=== PATIENT | male | born 1985 | race Caucasian/White ===

== ENCOUNTER 2016-12-14 13:45 | Emergency (ER) | payer OTHER ==
[2016-12-14 14:50] LABS: BASOPHIL 0.6 % (0-2); EOSINOPHIL 1.5 % (0-5); HCT 44.6 % (42.0-52.0); HGB 15.3 g/dl (13.2-18.0); LYMPHOCYTE 35.4 % (15-48); MCH 30.4 pg (25.0-31.0); MCHC 34.3 g/dL (32.0-36.0); MCV 88.7 fL (78.0-100.0); MPV 10.1 fL (6.0-9.5); NEUTROPHIL 52.5 % (41-80); PLT 248 K/uL (150-400); RBC 5.03 M/uL (4.70-6.00); RDW 13.3 % (11.5-14.0); WBC 6.5 K/uL (4.0-10.5)
[2016-12-14 15:00] LABS: INR 0.99 (0.9-1.2); PROTHROMBIN TIME 12.7 SECONDS (11.7-14.0); PTT 26.2 SECONDS (23.2-31.4)
[2016-12-14 15:06] LABS: ALBUMIN 4.4 g/dL (3.5-5.0); BILIRUBIN - TOTAL 0.3 mg/dL (0.1-1.0); CREATININE 0.9 mg/dL (0.7-1.2); GLOBULIN (CALCULATION) 2.6 g/dL (2.2-4.2); POTASSIUM 4.6 mmol/L (3.5-5.1)
== END 2016-12-14 16:50 | disposition home or self-care (01) ==
LOC: FER 13:45
PROVIDERS: Emergency Medicine
DX: I26.99 Other pulmonary embolism without acute cor pulmonale (principal); Z86.718 Personal history of other venous thrombosis and embolism; Z79.82 Long term (current) use of aspirin; Z79.01 Long term (current) use of anticoagulants
CPT/HCPCS: 36415; 71275; 80053; 84484; 85025; 85610; 85730; 93005; 93970; Q9967

== ENCOUNTER 2021-01-27 15:26 | Inpatient (IN) | payer OTHER ==
[~2021-01-27 15:26] MED LIST: BENTYL10 MG PO; CARAFATE1 GM PO; PHENERGAN25 M1 PO; PROTONIX40 MG PO; ZOFRAN8 MG PO
[2021-01-27 18:11] LABS: BASOPHIL 1.5 % (0-2); EOSINOPHIL 0.5 % (0-5); HCT 47.9 % (42.0-52.0); HGB 15.6 g/dl (13.2-18.0); MCH 29.3 pg (25.0-31.0); MCHC 32.6 g/dL (32.0-36.0); MPV 9.6 fL (6.0-9.5); NRBC 0; PLT 242 K/uL (150-400); RBC 5.32 M/uL (4.70-6.00); RDW 13.4 % (11.5-14.0)
[2021-01-27 18:13] LABS: MONOCYTE 24.5 % (0-12)
[2021-01-27 18:26] LABS: INR 1.06 (0.9-1.2); PROTHROMBIN TIME 13.1 SECONDS (11.4-13.6)
[2021-01-27 18:34] LABS: ALBUMIN 3.6 g/dL (3.4-5.0); BILIRUBIN - TOTAL 0.3 mg/dL (0.2-1.0); BUN/CREAT RATIO (CALC) 17.9 RATIO; CREATININE 1.12 mg/dL (0.67-1.17); GLOBULIN (CALCULATION) 3.7 g/dL; POTASSIUM 4.2 mmol/L (3.5-5.1); TOTAL PROTEIN 7.3 g/dL (6.4-8.2)
[2021-01-27 18:41] LABS: PRO-BNP 61 pg/mL (<125)
[2021-01-27 18:44] LABS: TOTAL CELL COUNT 100
[2021-01-27 18:47] LABS: BAND 3 % (0-10); LYMPHOCYTE(M) 15 % (15-48); MONOCYTE(M) 20 % (0-12); NEUTROPHILS(M) 56 % (41-80); VARIANT LYMPHOCYTE 6
[2021-01-27 18:48] LABS: PLATELET ESTIMATE NORMAL; PLATELET MORPHOLOGY NORMAL
[2021-01-27] MEDS ORDERED: WARFARIN SODIU7.5 MG PO (22:04)
[2021-01-27] MEDS ORDERED: CLONIDINE HCL0.1 MG PO (22:05)
[2021-01-28 06:34] LABS: BASOPHIL 0.8 % (0-2); EOSINOPHIL 0.6 % (0-5); HGB 16.5 g/dl (13.2-18.0); LYMPHOCYTE 22.7 % (15-48); MCH 29.7 pg (25.0-31.0); MCV 90.1 fL (78.0-100.0); MONOCYTE 16.3 % (0-12); MPV 9.9 fL (6.0-9.5); NRBC 0; PLT 245 K/uL (150-400); RBC 5.55 M/uL (4.70-6.00); RDW 13.6 % (11.5-14.0); WBC 5.3 K/uL (4.0-10.5)
[2021-01-28 07:01] LABS: INR 0.98 (0.9-1.2); PROTHROMBIN TIME 12.3 SECONDS (11.4-13.6)
[2021-01-28 07:04] LABS: BUN/CREAT RATIO (CALC) 14.9 RATIO; CREATININE 1.01 mg/dL (0.67-1.17); POTASSIUM 4.4 mmol/L (3.5-5.1)
[2021-01-28] MEDS ORDERED: AMITRIPTYLINE 225 MG PO (13:04)
[2021-01-28] MEDS ORDERED: ELIQUIS5 MG PO (13:04)
[2021-01-28] MEDS ORDERED: PEPCID AC20 MG PO (13:04)
[2021-01-28] MEDS ORDERED: LOPRESSOR25 MG PO (13:04)
[2021-01-28 13:10] LABS: BILIRUBIN NEGATIVE (NEGATIVE); BLOOD TRACE-INTACT Ery/uL (NEGATIVE); CLARITY CLEAR (CLEAR); COLOR YELLOW (YELLOW); GLUCOSE (U) NORMAL (NORMAL); LEUKOCYTES NEGATIVE Leu/uL (NEGATIVE); NITRITE NEGATIVE (NEGATIVE); PROTEIN NEGATIVE (NEGATIVE)
[2021-01-28 13:16] LABS: AMPHETAMINES NEGATIVE (NEGATIVE); BARBITURATES NEGATIVE (NEGATIVE); ECSTASY (MDMA) NEGATIVE (NEGATIVE); MARIJUANA (THC) NEGATIVE (NEGATIVE); METHADONE NEGATIVE (NEGATIVE); OPIATES NEGATIVE (NEGATIVE); OXYCODONE NEGATIVE (NEGATIVE)
[2021-01-28 13:23] LABS: BACTERIA TRACE; URINARY RBC RARE; URINARY WBC RARE
== END 2021-01-28 13:53 | disposition home or self-care (01) | DRG 299 ==
LOC: FER 15:26 → FMS 20:05
PROVIDERS: Nurse Practitioner; Physician Assistant; ADMIT Internal Medicine
DX: I82.412 Acute embolism and thrombosis of left femoral vein (principal); I26.99 Other pulmonary embolism without acute cor pulmonale; I10 Essential (primary) hypertension; I82.432 Acute embolism and thrombosis of left popliteal vein; K21.9 Gastro-esophageal reflux disease without esophagitis; Z20.822 Contact with and (suspected) exposure to COVID-19; G47.00 Insomnia, unspecified; R00.0 Tachycardia, unspecified; Z86.711 Personal history of pulmonary embolism; Z86.718 Personal history of other venous thrombosis and embolism; Z98.890 Other specified postprocedural states; Z79.01 Long term (current) use of anticoagulants; Z79.899 Other long term (current) drug therapy; Z87.891 Personal history of nicotine dependence
CPT/HCPCS: 36415; 71275; 80048; 80053; 80305; 81001; 83880; 84484; 85025; 85610; 93005; 93971; 96372; J1644; J1650; J7030; Q9967; U0002